=== PATIENT | female | born 2000 | race Asian ===

== ENCOUNTER 2023-10-04 04:46 | Emergency (ER) | payer BC ==
[2023-10-04] MEDS ORDERED: Ibuprofen 200 MG TAB ONE (05:43)
[2023-10-04] MEDS ORDERED: hydrOXYzine 25 MG TAB ONE (05:43)
== END 2023-10-04 05:56 | disposition home or self-care (01) ==
LOC: EDBD 04:46 → CSHERS 04:46
DX: R20.2 Paresthesia of skin (principal)
CPT/HCPCS: 99283